=== PATIENT | female | born 1960 | race Caucasian/White ===

== ENCOUNTER 2020-02-05 09:23 | Emergency (ER) | payer BC ==
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
== END 2020-02-05 10:05 | disposition home or self-care (01) ==
LOC: DL.ED 09:23
DX: S70.11XA Contusion of right thigh, initial encounter (principal); W22.8XXA Striking against or struck by other objects, initial encounter
CPT/HCPCS: 99282; 99283